=== PATIENT | female | born 1945 | race Caucasian/White ===

== ENCOUNTER → 2017-03-02 | Outpatient (CLI) | payer MEDICARE, BC ==
[~2017-03-02] MED LIST: ACETAMINOPHEN500 M1; ASPIR 8181 MG PO; BENADRYL50 MG PO; CALCIUM PO; CENTRUM SILVER1 TAB PO; FIBERWELL PO; FLONASE 50 MCG/16 GM NOSE; GLUCOSAMINE 50500 MG PO; GLUCOSAMINE1000 MG PO; MAG PO; NORCO 5-325 MG1 TAB PO; PREMARIN0.625 MG PO; VITAMIN D1000 UNIT PO; VITAMIND PO
[2017-03-02 21:25] LABS: BILIRUBIN URINE NEGATIVE (NEGATIVE); BLOOD URINE 150 /UL (NEGATIVE); GLUCOSE URINE NEGATIVE (NEGATIVE); KETONE URINE NEGATIVE (NEGATIVE); LEUKOCYTES URINE 500 /UL (NEGATIVE); NITRITE URINE POSITIVE (NEGATIVE); PROTEIN URINE 30 mg/dL (NEGATIVE); UROBILINOGEN URINE NORMAL (NORMAL)
[2017-03-02 21:29] LABS: BACTERIA URINE FEW (NEGATIVE); COLOR URINE YELLOW (YELLOW); EPITHELIAL URINE 0-2 #/HPF (NEGATIVE); TURBIDITY URINE 4+ (CLEAR); WBC CLUMPS URINE FEW (NEGATIVE); WBC URINE PACKED FIELD #/HPF (NEGATIVE)
== END | disposition disaster alternative care site (69) ==
LOC: GLAB 21:12
PROVIDERS: Urology
DX: R30.0 Dysuria (principal)

== ENCOUNTER → 2017-03-29 | Outpatient (CLI) | payer MEDICARE, BC | END | disposition disaster alternative care site (69) | LOC: GBCOE 11:00 | DX: Z12.31 Encounter for screening mammogram for malignant neoplasm of breast (principal) | CPT/HCPCS: G0202 ==